=== PATIENT | female | born 1935 | race African-American/Black ===

== ENCOUNTER 2017-01-08 20:00 | Emergency (ER) | payer MEDICARE ==
[~2017-01-08] VITALS: Ht 170.2 cm; Wt 72.7 kg
[2017-01-08] MEDS ORDERED: RISP.5 PO (20:08)
[2017-01-08] MEDS ORDERED: DONE10TA PO (20:08)
[2017-01-08] MEDS ORDERED: DiphenhydrAMINE HCL 25 MG CAPSULE PO ONE (21:45)
[2017-01-08 22:17] VITALS: BP 132/77
== END 2017-01-08 22:21 | disposition home or self-care (01) ==
LOC: EMS 20:04
DX: B88.0 Other acariasis (principal); L29.9 Pruritus, unspecified
CPT/HCPCS: 99282